=== PATIENT | female | born 1975 | race Caucasian/White ===

== ENCOUNTER 2017-03-22 17:29 | Emergency (ER) | payer SELFPAY ==
[2017-03-22 17:59] VITALS: BP 139/85; PULSE 76; TEMP 98.2; BMI 19.0
--- NOTE | 2017-03-22 18:21 | PDOC ---
History of Present Illness - General Chief Complaint: Bite Stated Complaint: BITE BY A CAT Time Seen by Provider: 03/22/17 18:01 History Source: Patient Exam Limitations: No Limitations - History of Present Illness Initial Comments: CHIEF COMPLAINT: 41 y/o afebrile female with no significant PMH here for rabies shots after being bitten and scratched by a rabid cat. HISTORY OF PRESENT ILLNESS: The patient states 6 days ago she was at a friend' s house who was feeding a stray cat. She states she was scratched and bitten superficially on both hands and arms by the cat. Today her friend called her and told her that the cat had tested positive for rabies. The patient is here for rabies shots. She is unsure of tetanus status. She has no complaints. Vital signs on arrival are within normal limits. REVIEW OF SYSTEMS: GENERAL/CONSTITUTIONAL: No fever/chills. No weakness. No weight change. HEAD, EYES, EARS, NOSE AND THROAT: No change in vision. No ear pain or discharge. No sore throat. CARDIOVASCULAR: No chest pain or shortness of breath. RESPIRATORY: No cough, wheezing, or hemoptysis. GASTROINTESTINAL: No abd pain, nausea, vomiting, diarrhea. GENITOURINARY: No dysuria, frequency, or change in urination. MUSCULOSKELETAL: No joint or muscle swelling or pain. No neck or back pain. SKIN: +scratches and bites to both hands and arms. NEUROLOGIC: No headache, vertigo, loss of consciousness, or loss of sensation. PHYSICAL EXAM: GENERAL: The patient is awake, alert, and fully oriented, in no acute distress. She is well appearing. HEAD: Normal with no signs of trauma. ENT: Pupils equal, round and reactive to light, extraocular movements intact, sclera anicteric, conjunctiva clear. Neck supple. LUNGS: Clear to auscultation bilaterally. Normal excursion. No respiratory distress or use of accessory muscles. CV: RRR, S1/S2, no MRG. Cap refill < 2 sec. ABDOMEN: Soft, non-distended, non-tender even to deep palpation, no hepatomegaly or splenomegaly, no masses. EXTREMITIES: Normal range of motion, no edema. +4 puncture wounds to anterior left tibia. NEUROLOGICAL: Normal speech, normal gait. CN II-XII grossly intact. PSYCH: Normal mood, normal affect. SKIN: Multiple superficial scrapes and very superficial punctures to b/l arms and hands. No streaking. No surrounding erythema. Past History - Past Medical History Allergies/Adverse Reactions: Allergies Allergy/AdvReac Type Severity Reaction Status Date / Time No Known Allergies Allergy Verified 03/22/17 17:57 Home Medications: Ambulatory Orders NK [No Known Home Medication] 03/22/17 - Surgical History Appendectomy: Yes - Immunization History Immunization Up to Date: No - Psycho/Social/Smoking Cessation Hx Suicidal Ideation: No Smoking History: Never smoked Number of Cigarettes Smoked Daily: 1 Information on smoking cessation initiated: No Hx Alcohol Use: No Drug/Substance Use Hx: No Substance Use Type: None *Physical Exam - Vital Signs Last Vital Signs Temp Pulse Resp BP Pulse Ox 98.2 F 76 18 139/85 100 03/22/17 17:57 03/22/17 17:57 03/22/17 17:57 03/22/17 17:57 03/22/17 17:57 Medical Decision Making - Medical Decision Making A/P: 41 y/o female here 6 days after she was bitten and scratched by a rabid cat for rabies shot and vaccine. Plan is as follows: 1. Tetanus 2. Rabies immunoglobulin 3. Rabies vaccine Patient tolerated all injections well. Gave her schedule for when to come back for other shots (03/25, 03/29, 04/05, 04/19) She states she will definitely come back for all shots. Pt instructed to return to the ER sooner with any concerning symptoms. The patient verbalizes understanding of all instructions, has no further questions and is awaiting discharge. *DC/Admit/Observation/Transfer Diagnosis at time of Disposition: Rabies exposure - Discharge Dispostion Disposition: HOME Condition at time of disposition: Good - Patient Instructions Printed Discharge Instructions: DI for Rabies Vaccine, Rabies Additional Instructions: Discharge Instructions: -You received a rabies vaccine, rabies immunoglobulin and tetanus injection today. -Your tetanus is now up to date for 10 years -You must return to the ER for further rabies shots on 03/25, 03/29, 04/05, 04/19
[2017-03-22] MEDS ORDERED: RABIES IMMUNE GLOBULIN 300 UNITS/2 ML VIAL IM ONE ×2 (18:26→18:46)
[2017-03-22] MEDS ORDERED: RABIES VACCINE (PCEC)/PF 2.5 UNIT/VIAL IM ONE (18:26)
[2017-03-22] MEDS ORDERED: DIPHTH,PERTUSS(ACELL),TET 0.5 ML DISP.SYRIN IM ONE (18:32)
[2017-03-22] MEDS ORDERED: RABIES IMMUNE GLOBULIN 300 UNITS/2 ML VIAL ONE (18:53)
== END 2017-03-22 20:02 | disposition home or self-care (01) ==
LOC: JERFT 17:29
PROC: 3E0234Z Introduction of Serum, Toxoid and Vaccine into Muscle, Percutaneous Approach (ICD-10-PCS; principal; 2017-03-22)
PROC: 3E0234Z Introduction of Serum, Toxoid and Vaccine into Muscle, Percutaneous Approach (ICD-10-PCS; 2017-03-22)
PROC: 3E0234Z Introduction of Serum, Toxoid and Vaccine into Muscle, Percutaneous Approach (ICD-10-PCS; 2017-03-22)
DX: Z20.3 Contact with and (suspected) exposure to rabies (principal); Z23 Encounter for immunization; S60.512A Abrasion of left hand, initial encounter; S60.511A Abrasion of right hand, initial encounter; W55.01XA Bitten by cat, initial encounter; W55.03XA Scratched by cat, initial encounter; Y93.89 Activity, other specified; Y92.89 Other specified places as the place of occurrence of the external cause
CPT/HCPCS: 90375; 90675; 90715; 99281-25

== ENCOUNTER 2017-03-25 07:55 | Emergency (ER) | payer SELFPAY ==
[2017-03-25 08:10] VITALS: BP 122/73; PULSE 80; TEMP 98.5; BMI 19.0
[2017-03-25] MEDS ORDERED: RABIES VACCINE (PCEC)/PF 2.5 UNIT/VIAL IM ONE (08:27)
--- NOTE | 2017-03-25 08:30 | PDOC ---
*Physical Exam - Vital Signs Last Vital Signs Temp Pulse Resp BP Pulse Ox 98.5 F 80 19 122/73 99 03/25/17 08:07 03/25/17 08:07 03/25/17 08:07 03/25/17 08:07 03/25/17 08:07 - Physical Exam General Appearance: Yes: Appropriately Dressed, Apparent Distress Medical Decision Making - Medical Decision Making 03/25/17 08:28 here for 2nd rabies vaccine *DC/Admit/Observation/Transfer Diagnosis at time of Disposition: Rabies exposure - Discharge Dispostion Disposition: HOME Condition at time of disposition: Stable Admit: No - Referrals - Patient Instructions Additional Instructions: return for rabies - Post Discharge Activity Work/School Note: Rabies Vaccination F/U Sumit.
== END 2017-03-25 08:40 | disposition home or self-care (01) ==
LOC: JERFT 07:55
PROC: 3E0234Z Introduction of Serum, Toxoid and Vaccine into Muscle, Percutaneous Approach (ICD-10-PCS; principal; 2017-03-25)
DX: Z23 Encounter for immunization (principal); Z20.3 Contact with and (suspected) exposure to rabies
CPT/HCPCS: 90675; 99281-25

== ENCOUNTER 2017-03-29 07:58 | Emergency (ER) | payer SELFPAY ==
[2017-03-29 08:09] VITALS: BP 116/64; PULSE 67; TEMP 97.8; BMI 19.0
[2017-03-29] MEDS ORDERED: RABIES VACCINE (PCEC)/PF 2.5 UNIT/VIAL IM ONE (08:18)
--- NOTE | 2017-03-29 08:26 | PDOC ---
History of Present Illness - General Chief Complaint: Revisit,Rabies Injection Stated Complaint: FOLLOW UP RABIES VACCINATION Time Seen by Provider: 03/29/17 08:18 History Source: Patient Exam Limitations: No Limitations - History of Present Illness Initial Comments: 03/29/17 08:21 CHIEF COMPLAINT: Here for third rabies vaccination HISTORY OF PRESENT ILLNESS: Patient reports that she was feeding a stray cat. She states she was scratched and bitten superficially on both hands and arms by the cat. Today her friend called her and told her that the cat had tested positive for rabies. The patient is here for third rabies vaccination. REVIEW OF SYSTEMS: GENERAL/CONSTITUTIONAL: No fever/chills. No weakness. No weight change. HEAD, EYES, EARS, NOSE AND THROAT: No change in vision. No ear pain or discharge. No sore throat. CARDIOVASCULAR: No chest pain or shortness of breath. RESPIRATORY: No cough, wheezing, or hemoptysis. GASTROINTESTINAL: No abd pain, nausea, vomiting, diarrhea. GENITOURINARY: No dysuria, frequency, or change in urination. MUSCULOSKELETAL: No joint or muscle swelling or pain. No neck or back pain. SKIN: Healed +scratches and bites to both hands and arms. NEUROLOGIC: No headache, vertigo, loss of consciousness, or loss of sensation. PHYSICAL EXAM: GENERAL: The patient is awake, alert, and fully oriented, in no acute distress. She is well appearing. HEAD: Normal with no signs of trauma. ENT: Pupils equal, round and reactive to light, extraocular movements intact, sclera anicteric, conjunctiva clear. Neck supple. LUNGS: Clear to auscultation bilaterally. Normal excursion. No respiratory distress or use of accessory muscles. CV: RRR, S1/S2, no MRG. Cap refill < 2 sec. ABDOMEN: Soft, non-distended, non-tender even to deep palpation, no hepatomegaly or splenomegaly, no masses. EXTREMITIES: Normal range of motion, no edema. +4 puncture wounds to anterior left tibia. NEUROLOGICAL: Normal speech, normal gait. CN II-XII grossly intact. PSYCH: Normal mood, normal affect. SKIN: Multiple superficial scrapes and very superficial punctures to b/l arms and hands. No streaking. No surrounding erythema. Past History - Past Medical History Allergies/Adverse Reactions: Allergies Allergy/AdvReac Type Severity Reaction Status Date / Time No Known Allergies Allergy Verified 03/29/17 08:06 Home Medications: Ambulatory Orders NK [No Known Home Medication] 03/22/17 Other medical history: none - Surgical History Appendectomy: Yes - Immunization History Immunization Up to Date: No - Psycho/Social/Smoking Cessation Hx Anxiety: No Suicidal Ideation: No Smoking History: Never smoked Have you smoked in the past 12 months: Yes Number of Cigarettes Smoked Daily: 1 Information on smoking cessation initiated: No Hx Alcohol Use: No Drug/Substance Use Hx: No Substance Use Type: None *Physical Exam - Vital Signs Last Vital Signs Temp Pulse Resp BP Pulse Ox 97.8 F 67 18 116/64 100 03/29/17 08:06 03/29/17 08:06 03/29/17 08:06 03/29/17 08:06 03/29/17 08:06 Medical Decision Making - Medical Decision Making 03/29/17 08:30 A/P : Patient here for third rabies vaccination. schedule given for follow up. *DC/Admit/Observation/Transfer Diagnosis at time of Disposition: Need for rabies vaccination - Discharge Dispostion Admit: No - Patient Instructions Printed Discharge Instructions: DI for Rabies Vaccine - Post Discharge Activity Work/School Note: Rabies Vaccination F/U [facility]it.
== END 2017-03-29 08:36 ==
LOC: JERFT 07:58 → JER 07:58 → JERFT 08:36
CPT/HCPCS: 90675; 99281-25

== ENCOUNTER 2017-04-05 07:43 | Emergency (ER) | payer SELFPAY ==
[2017-04-05 07:47] VITALS: BP 123/68; PULSE 79; TEMP 99; BMI 19.3
[2017-04-05] MEDS ORDERED: RABIES IMMUNE GLOBULIN 300 UNITS/2 ML VIAL IM ONE (08:10)
[2017-04-05] MEDS ORDERED: RABIES VACCINE (PCEC)/PF 2.5 UNIT/VIAL IM ONE (08:14)
--- NOTE | 2017-04-05 08:17 | PDOC ---
History of Present Illness - General Chief Complaint: Revisit,Rabies Injection Stated Complaint: REVISIT Time Seen by Provider: 04/05/17 07:51 History Source: Patient Exam Limitations: No Limitations - History of Present Illness Initial Comments: 04/05/17 08:11 Patient is a 41F here today to get rabies vaccination after being bit and scratched by cat that had reportedly tested positive for rabies. She has no complaints at this time. She denies nausea, vomiting, fevers, chills, parathesias and reactions at the vaccination site. Past History - Past Medical History Allergies/Adverse Reactions: Allergies Allergy/AdvReac Type Severity Reaction Status Date / Time No Known Allergies Allergy Verified 04/05/17 07:45 Home Medications: Ambulatory Orders NK [No Known Home Medication] 03/22/17 - Surgical History Appendectomy: Yes - Immunization History Immunization Up to Date: No - Psycho/Social/Smoking Cessation Hx Anxiety: No Suicidal Ideation: No Smoking History: Current some day smoker Have you smoked in the past 12 months: No Number of Cigarettes Smoked Daily: 1 Information on smoking cessation initiated: No Hx Alcohol Use: No Drug/Substance Use Hx: No Substance Use Type: None Review of Systems - Review of Systems Comments:: 04/05/17 08:14 GENERAL/CONSTITUTIONAL: No fever or chills. No weakness. HEAD, EYES, EARS, NOSE AND THROAT: No change in vision. No ear pain or discharge. No sore throat. CARDIOVASCULAR: No chest pain or shortness of breath RESPIRATORY: No cough, wheezing, or hemoptysis. GASTROINTESTINAL: No nausea, vomiting GENITOURINARY: No dysuria, frequency, or change in urination. MUSCULOSKELETAL: No joint or muscle swelling or pain. No neck or back pain. SKIN: No rash NEUROLOGIC: No headache, vertigo, loss of consciousness, or change in strength/ sensation. ALLERGIC/IMMUNOLOGIC: No hives or skin allergy. *Physical Exam - Vital Signs Last Vital Signs Temp Pulse Resp BP Pulse Ox 99 F 79 18 123/68 100 04/05/17 07:45 04/05/17 07:45 04/05/17 07:45 04/05/17 07:45 04/05/17 07:45 - Physical Exam Comments: 04/05/17 08:15 GENERAL: Awake, alert, and fully oriented, in no acute distress HEAD: No signs of trauma, normocephalic, atraumatic EYES: PERRLA, EOMI, sclera anicteric, conjunctiva clear ENT: Auricles normal inspection, hearing grossly normal, nares patent, oropharynx clear without exudates. Moist mucosa LUNGS: No distress, speaks full sentences, clear to auscultation bilaterally HEART: Regular rate and rhythm, normal S1 and S2, no murmurs, rubs or gallops, peripheral pulses normal and equal bilaterally. EXTREMITIES: Normal inspection, Normal range of motion, no edema. No clubbing or cyanosis. NEUROLOGICAL: Normal speech, normal gait, no focal sensorimotor deficits SKIN: Warm, Dry, normal turgor, small, healing scratch wound on left leg. Medical Decision Making - Medical Decision Making 04/05/17 08:17 41F with no complaints here today for rabies vaccination. Tolerated prior vaccinations well. Rabies vaccination given per protocol given today without incident. Next vaccination on 04/19. *DC/Admit/Observation/Transfer Diagnosis at time of Disposition: Rabies exposure - Discharge Dispostion Disposition: HOME Condition at time of disposition: Good Admit: No - Patient Instructions Printed Discharge Instructions: DI for Rabies Vaccine - Attestations Physician Attestion: 04/05/17 08:19 I, Dr. Yannick Wing, attest that this document has been prepared under my direction and personally reviewed by me in its entirety. I further attest, that it accurately reflects all work, treatment, procedures and medical decision -making performed by me.
--- NOTE | 2017-04-05 08:25 | PDOC ---
Attending Attestation - Resident Resident Name: Yannick Wing - ED Attending Attestation I have performed the following: I have examined & evaluated the patient, The case was reviewed & discussed with the resident, I agree w/resident's findings & plan, Exceptions are as noted - HPI HPI: 04/05/17 08:24 41 yo F with no pmhx here for 4th rabies vaccination. for postiive tested exposure cat bite. was given immunoglobin initially. no f/ c no narvaez no n/v - Physicial Exam PE: 04/05/17 08:24 awake alert lungs clear heart RRR no mrg. abd soft nt nd skin warm and dry. - Medical Decision Making 04/05/17 08:25 plan vaccination. dc
== END 2017-04-05 08:29 | disposition home or self-care (01) ==
LOC: JER 07:43
PROC: 3E0234Z Introduction of Serum, Toxoid and Vaccine into Muscle, Percutaneous Approach (ICD-10-PCS; principal; 2017-04-05)
DX: Z20.3 Contact with and (suspected) exposure to rabies (principal)
CPT/HCPCS: 90675; 99281-25

== ENCOUNTER 2017-04-19 17:09 | Emergency (ER) | payer SELFPAY ==
[2017-04-19 17:15] VITALS: BP 120/96; PULSE 85; TEMP 98.5; BMI 20.1
[2017-04-19] MEDS ORDERED: RABIES VACCINE (PCEC)/PF 2.5 UNIT/VIAL IM ONE (18:08)
--- NOTE | 2017-04-19 18:16 | PDOC ---
History of Present Illness - General Chief Complaint: Revisit,Rabies Injection Stated Complaint: REVISIT/RABIES VACCINATION Time Seen by Provider: 04/19/17 18:08 History Source: Patient Exam Limitations: No Limitations - History of Present Illness Initial Comments: 04/19/17 18:09 rabies vaccine - here for the last rabies vaccination. Has completed series after a stray cat bite exposure to her hand and leg. Patient states has had no consequences from the previous vaccines and understands this is the last vaccine necessary. 04/19/17 18:31 Severity: moderate Associated Symptoms: reports: denies symptoms Past History - Travel Traveled outside of the country in the last 30 days: No Close contact w/someone who was outside of country & ill: No - Past Medical History Allergies/Adverse Reactions: Allergies Allergy/AdvReac Type Severity Reaction Status Date / Time No Known Allergies Allergy Verified 04/19/17 17:14 Home Medications: Ambulatory Orders NK [No Known Home Medication] 03/22/17 Other medical history: denies - Surgical History Abdominal Surgery: No Appendectomy: Yes - Immunization History Immunization Up to Date: No - Psycho/Social/Smoking Cessation Hx Anxiety: No Suicidal Ideation: No Smoking History: Never smoked Have you smoked in the past 12 months: No Number of Cigarettes Smoked Daily: 1 Information on smoking cessation initiated: No Hx Alcohol Use: No Drug/Substance Use Hx: No Substance Use Type: None Review of Systems - Review of Systems Able to Perform ROS?: Yes Is the patient limited Nepalese proficient: Yes Constitutional: Yes: See HPI. No: Symptoms Reported *Physical Exam - Vital Signs Last Vital Signs Temp Pulse Resp BP Pulse Ox 98.5 F 85 18 120/96 99 04/19/17 17:13 04/19/17 17:13 04/19/17 17:13 04/19/17 17:13 04/19/17 17:13 - Physical Exam General Appearance: Yes: Nourished, Appropriately Dressed. No: Apparent Distress HEENT: positive: KRISTY, Normal ENT Inspection, TMs Normal, Pharynx Normal Musculoskeletal: positive: Normal Inspection Extremity: positive: Normal Capillary Refill Integumentary: positive: Normal Color Neurologic: positive: airplane mechanic II-XII NML intact, Fully Oriented, Alert, Normal Mood/ Affect, Normal Response, Motor Strength 5/5 Medical Decision Making - Medical Decision Making 04/19/17 22:42 Fourth and final rabies vaccine given today *DC/Admit/Observation/Transfer Diagnosis at time of Disposition: Need for rabies vaccination - Discharge Dispostion Disposition: HOME Condition at time of disposition: Stable Admit: No - Patient Instructions Printed Discharge Instructions: DI for Rabies Vaccine Additional Instructions: History of Present Illness - General Chief Complaint: Revisit,Rabies Injection Stated Complaint: REVISIT/RABIES VACCINATION Time Seen by Provider: 04/19/17 18:08 History Source: Patient Exam Limitations: No Limitations - History of Present Illness Initial Comments: 04/19/17 18:09 rabies vaccine - here for the last rabies vaccination. Has completed series after a stray cat bite exposure to her hand and leg. Patient states has had no consequences from the previous vaccines and understands this is the last vaccine necessary. 04/19/17 18:31 Severity: moderate Associated Symptoms: reports: denies symptoms Past History - Travel Traveled outside of the country in the last 30 days: No Close contact w/someone who was outside of country & ill: No - Past Medical History Allergies/Adverse Reactions: Allergies Allergy/AdvReac Type Severity Reaction Status Date / Time No Known Allergies Allergy Verified 04/19/17 17:14 Home Medications: Ambulatory Orders NK [No Known Home Medication] 03/22/17 Other medical history: denies - Surgical History Abdominal Surgery: No Appendectomy: Yes - Immunization History Immunization Up to Date: No - Psycho/Social/Smoking Cessation Hx Anxiety: No Suicidal Ideation: No Smoking History: Never smoked Have you smoked in the past 12 months: No Number of Cigarettes Smoked Daily: 1 Information on smoking cessation initiated: No Hx Alcohol Use: No Drug/Substance Use Hx: No Substance Use Type: None Review of Systems - Review of Systems Able to Perform ROS?: Yes Is the patient limited Nepalese proficient: Yes Constitutional: Yes: See HPI. No: Symptoms Reported *Physical Exam - Vital Signs Last Vital Signs Temp Pulse Resp BP Pulse Ox 98.5 F 85 18 120/96 99 04/19/17 17:13 04/19/17 17:13 04/19/17 17:13 04/19/17 17:13 04/19/17 17:13 *DC/Admit/Observation/Transfer Diagnosis at time of Disposition: Need for rabies vaccination - Discharge Dispostion Disposition: HOME Condition at time of disposition: Stable Admit: No - Patient Instructions Printed Discharge Instructions: DI for Rabies Vaccine History of Present Illness - General Chief Complaint: Revisit,Rabies Injection Stated Complaint: REVISIT/RABIES VACCINATION Time Seen by Provider: 04/19/17 18:08 History Source: Patient Exam Limitations: No Limitations - History of Present Illness Initial Comments: 04/19/17 18:09 rabies vaccine - here for the last rabies vaccination. Has completed series after a stray cat bite exposure to her hand and leg. Patient states has had no consequences from the previous vaccines and understands this is the last vaccine necessary. 04/19/17 18:31 Severity: moderate Associated Symptoms: reports: denies symptoms Past History - Travel Traveled outside of the country in the last 30 days: No Close contact w/someone who was outside of country & ill: No - Past Medical History Allergies/Adverse Reactions: Allergies Allergy/AdvReac Type Severity Reaction Status Date / Time No Known Allergies Allergy Verified 04/19/17 17:14 Home Medications: Ambulatory Orders NK [No Known Home Medication] 03/22/17 Other medical history: denies - Surgical History Abdominal Surgery: No Appendectomy: Yes - Immunization History Immunization Up to Date: No - Psycho/Social/Smoking Cessation Hx Anxiety: No Suicidal Ideation: No Smoking History: Never smoked Have you smoked in the past 12 months: No Number of Cigarettes Smoked Daily: 1 Information on smoking cessation initiated: No Hx Alcohol Use: No Drug/Substance Use Hx: No Substance Use Type: None Review of Systems - Review of Systems Able to Perform ROS?: Yes Is the patient limited Nepalese proficient: Yes Constitutional: Yes: See HPI. No: Symptoms Reported *Physical Exam - Vital Signs Last Vital Signs Temp Pulse Resp BP Pulse Ox 98.5 F 85 18 120/96 99 04/19/17 17:13 04/19/17 17:13 04/19/17 17:13 04/19/17 17:13 04/19/17 17:13 *DC/Admit/Observation/Transfer Diagnosis at time of Disposition: Need for rabies vaccination - Discharge Dispostion Disposition: HOME Condition at time of disposition: Stable Admit: No - Patient Instructions Printed Discharge Instructions: DI for Rabies Vaccine
== END 2017-04-19 18:38 | disposition home or self-care (01) ==
LOC: JERFT 17:09
PROC: 3E0234Z Introduction of Serum, Toxoid and Vaccine into Muscle, Percutaneous Approach (ICD-10-PCS; principal; 2017-04-19)
DX: Z02.3 Encounter for examination for recruitment to armed forces (principal)
CPT/HCPCS: 90675; 99281-25

== ENCOUNTER 2018-12-22 16:12 | Emergency (ER) | payer OTHER ==
[2018-12-22 16:17] VITALS: BP 107/40; PULSE 92; TEMP 97.9; BMI 20.1
[2018-12-22] MEDS ORDERED: SODIUM CHLORIDE 1,000 ML IV STA (16:17)
--- NOTE | 2018-12-22 16:17 | PDOC ---
Rapid Medical Evaluation Medical Evaluation: Allergies Allergy/AdvReac Type Severity Reaction Status Date / Time No Known Allergies Allergy Verified 04/19/17 17:14 I have performed a brief in-person evaluation of this patient. The patient presents with a chief complaint of: Ran out of Paxil 4 days ago; c/ o having n/v; had few episodes of watery diarrhea yesterday as well; denies drug or alcohol use Pertinent physical exam findings: In NAD, +tearing I have ordered the following: labs, IVF The patient will proceed to the ED for further evaluation. 12/22/18 16:13
[2018-12-22] MEDS ORDERED: ONDANSETRON 4 MG/2 ML VIAL IVPUSH ONE (16:57)
[2018-12-22] MEDS ORDERED: ONDANSETRON 4 MG/2 ML VIAL ONE (17:31)
[2018-12-22] MEDS ORDERED: ACETAMINOPHEN 1000 MG/100 ML VIAL (NON FORMULARY) IVPB ONE (17:41)
--- NOTE | 2018-12-22 17:54 | PDOC ---
History of Present Illness - General Chief Complaint: Pain Stated Complaint: Nausea/Vomiting, ran out Paxil Time Seen by Provider: 12/22/18 16:13 History Source: Patient Exam Limitations: No Limitations - History of Present Illness Travel History: No Initial Comments: 12/22/18 17:20 43-year-old female presents to ED with complaints of nausea vomiting and generalized abdominal cramping since awakening this morning. Patient states ran out of her Paxil about 5 days ago and was unable to receive a refill. Patient denies fever, chills, urinary complaints, bowel complaints, chest pain or shortness of breath. Timing/Duration: reports: constant Quality: reports: mild, cramping Abdominal Pain Onset Location: reports: generalized abdomen Pain Radiation: denies: no radiation Activities at Onset: reports: none Aggravating Factors: improves with: None Alleviating Factors: improves with: None Past History - Travel Traveled outside of the country in the last 30 days: No Close contact w/someone who was outside of country & ill: No - Past Medical History Allergies/Adverse Reactions: Allergies Allergy/AdvReac Type Severity Reaction Status Date / Time No Known Allergies Allergy Verified 12/22/18 16:17 Home Medications: Ambulatory Orders NK [No Known Home Medication] 03/22/17 COPD: No Psychiatric Problems: Yes (depression) - Surgical History Abdominal Surgery: No Appendectomy: Yes - Immunization History Immunization Up to Date: No - Suicide/Smoking/Psychosocial Hx Smoking History: Current every day smoker Have you smoked in the past 12 months: No Number of Cigarettes Smoked Daily: 5 Information on smoking cessation initiated: No Hx Alcohol Use: No Drug/Substance Use Hx: No Substance Use Type: None Patient Lives Alone: No Lives with/in: spouse/SO Review of Systems - Review of Systems Able to Perform ROS?: Yes Constitutional: Yes: Weakness HEENTM: No: Symptoms Reported Respiratory: No: Symptoms reported Cardiac (ROS): No: Symptoms Reported ABD/GI: Yes: Nausea, Poor Appetite, Poor Fluid Intake, Vomiting, Abdominal cramping Integumentary: No: Symptoms Reported Neurological: No: Symptoms reported Psychiatric: Yes: Anxiety, Depression, Stressors Endocrine: No: Symptoms Reported Hematologic/Lymphatic: No: Symptoms Reported *Physical Exam - Vital Signs Last Vital Signs Temp Pulse Resp BP Pulse Ox 97.9 F 92 H 19 107/40 L 98 12/22/18 16:14 12/22/18 16:14 12/22/18 16:14 12/22/18 16:14 12/22/18 16:14 - Physical Exam General Appearance: Yes: Nourished, Appropriately Dressed. No: Apparent Distress HEENT: positive: Pharynx Normal (dry appearing). negative: Pale Conjunctivae Neck: positive: Normal Thyroid Respiratory/Chest: positive: Lungs Clear, Normal Breath Sounds. negative: Respiratory Distress, Accessory Muscle Use Cardiovascular: positive: Regular Rhythm, Regular Rate. negative: Murmur Gastrointestinal/Abdominal: positive: Normal Bowel Sounds, Soft. negative: Distended, Tenderness Integumentary: positive: Normal Color, Warm, Moist Neurologic: positive: Motor Strength 5/5. negative: Normal Mood/Affect (anxious ) Heart Score/ECG Review - ECG Intrepretation Rhythm: Regular Rhythm (nsr 72) ED Treatment Course - LABORATORY CBC & Chemistry Diagram: 12/22/18 17:36 12/22/18 17:36 - Medications Given in the ED: ED Medications Discontinued Medications Generic Name Dose Route Start Last Admin Trade Name Freq PRN Reason Stop Dose Admin Sodium Chloride 1,000 mls @ 1,000 mls/hr 12/22/18 16:17 12/22/18 17:32 Normal Saline - IV 12/22/18 17:16 1,000 mls/hr ASDIR STA Administration Ondansetron HCl 4 mg 12/22/18 16:57 12/22/18 17:32 Zofran Injection IVPUSH 12/22/18 16:58 4 mg ONCE ONE Administration Medical Decision Making - Medical Decision Making 12/22/18 17:05 Chief complaint. Patient feeling anxious nauseous and is vomiting since this morning. Patient also complains of generalized abdominal cramping and requesting refill for Paxil and she has not taken in 5 days Exam. Patient appears dry anxious and had no abdominal tenderness on exam. Plan: Patient ordered for IV fluids, Tylenol, Zofran, labs and urine 12/22/18 18:06 Laboratory Tests 12/22/18 17:36 WBC 7.2 Hgb 14.5 Hct 42.6 MCV 93.4 Absolute Neuts (auto) 6.3 Neutrophils % 87.4 H 12/22/18 18:17 Laboratory Tests 12/22/18 17:36 Sodium 138 Potassium 3.9 Chloride 108 H Carbon Dioxide 25 Anion Gap 6 L BUN 15 Creatinine 0.6 Random Glucose 96 Calcium 9.0 Total Bilirubin 0.8 AST 21 ALT 26 Alkaline Phosphatase 69 Total Protein 6.7 Albumin 3.6 Lipase 141 12/22/18 18:28 ua collected. pt feeling better. will dc home w/ rx of paxil *DC/Admit/Observation/Transfer Diagnosis at time of Disposition: Paxil withdrawal syndrome - Discharge Dispostion Disposition: HOME Condition at time of disposition: Improved - Referrals - Patient Instructions Printed Discharge Instructions: Nausea and Vomiting-Adult Additional Instructions: Please start your Paxil tonight and take Zofran as needed for nausea. Please also follow-up with your doctor next week to discuss today's visit and receive refill. - Post Discharge Activity
[2018-12-22 17:55] LABS: BASO % 0.3 % (0-2.0); EOS % 0.7 % (0-4.5); HEMATOCRIT 42.6 % (32.4-45.2); HEMOGLOBIN 14.5 GM/dL (10.7-15.3); LYMPH % 6.7 % (8-40); MCH 31.7 pg (25.7-33.7); MCHC 33.9 g/dl (32.0-36.0); MEAN CELL VOLUME 93.4 fl (80-96); MEAN PLT VOLUME 8.9 fl (7.5-11.1); MONO % 4.9 % (3.8-10.2); NEUT % 87.4 % (42.8-82.8); PLATELET COUNT 152 K/MM3 (134-434); RBC 4.56 M/mm3 (3.60-5.2); RDW 13.1 % (11.6-15.6); WHITE BLOOD COUNT 7.2 K/mm3 (4.0-10.0)
[2018-12-22] MEDS ORDERED: ACETAMINOPHEN INJECTION 100 ML IVPB ONE (18:00)
[2018-12-22 18:16] LABS: ALBUMIN 3.6 g/dl (3.4-5.0); BILIRUBIN,TOTAL 0.8 mg/dL (0.2-1); CREATININE 0.6 mg/dL (0.55-1.3); POTASSIUM 3.9 mmol/L (3.5-5.1); TOT PROT 6.7 g/dl (6.4-8.2)
[2018-12-22 19:18] LABS: URINE APPEARANCE CLOUDY; URINE BILIRUBIN NEGATIVE (NEGATIVE); URINE COLOR YELLOW; URINE GLUCOSE (UA) NEGATIVE (NEGATIVE); URINE KETONE 1+ (NEGATIVE); URINE LEUK ESTERASE NEGATIVE (NEGATIVE); URINE NITRITE NEGATIVE (NEGATIVE); URINE PROTEIN NEGATIVE (NEGATIVE); URINE UROBILINOGEN 0.2 mg/dL (0.2-1.0)
[2018-12-22 19:21] LABS: HCG,QUALITATIVE URINE Negative
--- NOTE | 2018-12-23 11:44 | EKG ---
Test Reason : Blood Pressure : / mmHG Vent. Rate : 072 BPM Atrial Rate : 072 BPM P-R Int : 164 ms QRS Dur : 088 ms QT Int : 374 ms P-R-T Axes : 067 068 069 degrees QTc Int : 409 ms NORMAL SINUS RHYTHM SEPTAL INFARCT , AGE UNDETERMINED ABNORMAL ECG NO PREVIOUS ECGS AVAILABLE Confirmed by XOCHITL HARMAN, LEX ([id number]) on 12/23/2018 11:43:55 AM Referred By: Confirmed By:LEX LEUNG MD
== END 2018-12-22 19:05 | disposition home or self-care (01) ==
LOC: JER 16:12
PROC: 3E0337Z Introduction of Electrolytic and Water Balance Substance into Peripheral Vein, Percutaneous Approach (ICD-10-PCS; principal; 2018-12-22)
PROC: 3E033NZ Introduction of Analgesics, Hypnotics, Sedatives into Peripheral Vein, Percutaneous Approach (ICD-10-PCS; 2018-12-22)
PROC: 3E033GC Introduction of Other Therapeutic Substance into Peripheral Vein, Percutaneous Approach (ICD-10-PCS; 2018-12-22)
DX: F13.230 Sedative, hypnotic or anxiolytic dependence with withdrawal, uncomplicated (principal); F41.9 Anxiety disorder, unspecified
CPT/HCPCS: 36415; 80053; 81003; 83690; 84703; 85025; 93005; 93010; 96361; 96374; 96375; 99282-25; J0131; J7030

== ENCOUNTER 2020-12-13 20:41 | Inpatient (IN) | payer OTHER ==
[2020-12-13 21:46] LABS: BASO % 1.1 % (0-2.0); EOS % 6.3 % (0-4.5); HEMATOCRIT 38.6 % (32.4-45.2); HEMOGLOBIN 13.2 GM/dL (10.7-15.3); LYMPH % 32.5 % (8-40); MCH 32.2 pg (25.7-33.7); MCHC 34.3 g/dl (32.0-36.0); MEAN CELL VOLUME 94.1 fl (80-96); MEAN PLT VOLUME 8.8 fl (7.5-11.1); MONO % 10.5 % (3.8-10.2); NEUT % 49.6 % (42.8-82.8); PLATELET COUNT 219 K/MM3 (134-434); RDW 12.8 % (11.6-15.6); WHITE BLOOD COUNT 4.3 K/mm3 (4.0-10.0)
[2020-12-13] MEDS ORDERED: VANCOMYCIN 1 GM in D5W (PRE-DOCKED) 1,000 MG/250 ML IVPB ONE (21:51)
[2020-12-13] MEDS ORDERED: CLINDAMYCIN 600MG PREMIX IVPB 600 MG/50 ML BAG IVPB ONE ×2 (21:52→21:56)
[2020-12-13] MEDS ORDERED: ACETAMINOPHEN 500 MG TABLET (FP) PO ONE (21:52)
[2020-12-13] MEDS ORDERED: VANCOMYCIN 1 GRAM (PRE-DOCKED) 1,000 MG/250 ML BAG IVPB ONE (21:56)
[2020-12-13] MEDS ORDERED: ACETAMINOPHEN 500 MG TABLET (FP) ONE (21:58)
[2020-12-13 22:05] LABS: CALCIUM 8.6 mg/dL (8.5-10.1)
[2020-12-13 22:06] LABS: ALBUMIN 3.3 g/dl (3.4-5.0)
[2020-12-13 22:09] LABS: CREATININE 0.7 mg/dL (0.55-1.3)
[2020-12-13 22:10] LABS: BILIRUBIN,TOTAL 0.4 mg/dL (0.2-1); TOT PROT 7.1 g/dl (6.4-8.2)
[2020-12-14] MEDS ORDERED: ONDANSETRON 4 MG/2 ML VIAL IVPUSH PRN (00:40)
[2020-12-14] MEDS ORDERED: FAMOTIDINE 20 MG TABLET PO ONE (00:41)
[2020-12-14] MEDS ORDERED: CALAMINE 8% TOPICAL LOTION 177 ML BOTTLE TP PRN (01:10)
[2020-12-14] MEDS ORDERED: CEFAZOLIN 1 GM in DEXTROSE 5%-WATER - 50 ML IVPB SCH (02:00)
[2020-12-14 05:14] LABS: BASO % 0.8 % (0-2.0); EOS % 5.4 % (0-4.5); HEMATOCRIT 33.5 % (32.4-45.2); HEMOGLOBIN 11.9 GM/dL (10.7-15.3); LYMPH % 24.4 % (8-40); MCH 32.7 pg (25.7-33.7); MCHC 35.4 g/dl (32.0-36.0); MEAN CELL VOLUME 92.4 fl (80-96); MEAN PLT VOLUME 7.7 fl (7.5-11.1); MONO % 11.8 % (3.8-10.2); NEUT % 57.6 % (42.8-82.8); PLATELET COUNT 177 K/MM3 (134-434); RBC 3.63 M/mm3 (3.60-5.2); RDW 12.7 % (11.6-15.6); WHITE BLOOD COUNT 5.2 K/mm3 (4.0-10.0)
[2020-12-14] MEDS: ACETAMINOPHEN 325 MG TABLET (FP) PO PRN ×3 (05:28→20:12)
[2020-12-14] MEDS ORDERED: ACETAMINOPHEN 325 MG TABLET (FP) ONE (05:29)
[2020-12-14 05:33] LABS: CALCIUM 7.8 mg/dL (8.5-10.1)
[2020-12-14 05:34] LABS: BLOOD UREA NITROGEN 21.8 mg/dL (7-18)
[2020-12-14 05:37] LABS: CREATININE 0.6 mg/dL (0.55-1.3)
[2020-12-14] MEDS ORDERED: VANCOMYCIN 1 GM PREMIX - 1 GM/200 ML BAG IVPB SCH (10:00)
[2020-12-14] MEDS ORDERED: CEFAZOLIN 1 GM/D5W 1 GM/50 ML BAG IVPB SCH (10:00)
[2020-12-14] MEDS ORDERED: VANCOMYCIN 1 GRAM (PRE-DOCKED) 1 GM/250 ML BAG IVPB SCH (10:00)
[2020-12-14] MEDS ORDERED: DEXTROSE 5%-WATER - 50 ML IVPB ONE ×2 (10:27→16:22)
[2020-12-14] MEDS ORDERED: ceFAZolin SODIUM 1 GM VIAL ONE ×2 (10:27→16:22)
[2020-12-14] MEDS: FAMOTIDINE 20 MG TABLET PO SCH (10:31)
[2020-12-14] MEDS: PARoxetine HCL 20 MG TABLET PO SCH (10:31)
[2020-12-14] MEDS: ENOXAPARIN NA (PORCINE) 40 MG/0.4 ML DISP.SYRIN SQ SCH (10:31)
[2020-12-14] MEDS: DOXYCYCLINE INJECTION 100 MG in DEXTROSE 5%-WATER - 100 ML IVPB SCH ×2 (10:32→22:54)
[2020-12-14] MEDS: traMADol HCL 50 MG TABLET PO PRN (16:41)
[2020-12-14] MEDS: NICOTINE 14 MG/24 HOURS TOPICAL PATCH TD SCH (16:44)
[2020-12-14] MEDS: CEFAZOLIN 1 GM in DEXTROSE 5%-WATER - 1 GM/50 ML IVPB IVPB SCH (17:52)
[2020-12-14] MEDS ORDERED: PT OWN MED DRAWER 7, Y5N ONE (21:35)
[2020-12-15] MEDS ORDERED: ceFAZolin SODIUM 1 GM VIAL ONE ×3 (01:12→17:29)
[2020-12-15] MEDS ORDERED: DEXTROSE 5%-WATER - 50 ML IVPB ONE ×3 (01:13→17:29)
[2020-12-15] MEDS: CEFAZOLIN 1 GM in DEXTROSE 5%-WATER - 1 GM/50 ML IVPB IVPB SCH ×3 (01:21→17:42)
[2020-12-15] MEDS: traMADol HCL 50 MG TABLET PO PRN (05:16)
[2020-12-15 06:39] LABS: BASO % 1.2 % (0-2.0); EOS % 6.8 % (0-4.5); HEMATOCRIT 36.1 % (32.4-45.2); HEMOGLOBIN 12.3 GM/dL (10.7-15.3); LYMPH % 39.5 % (8-40); MCHC 34.1 g/dl (32.0-36.0); MEAN CELL VOLUME 93.8 fl (80-96); MEAN PLT VOLUME 8.7 fl (7.5-11.1); MONO % 11.2 % (3.8-10.2); NEUT % 41.3 % (42.8-82.8); PLATELET COUNT 188 K/MM3 (134-434); RBC 3.85 M/mm3 (3.60-5.2); RDW 12.7 % (11.6-15.6); WHITE BLOOD COUNT 3.8 K/mm3 (4.0-10.0)
[2020-12-15 07:05] LABS: BLOOD UREA NITROGEN 17.4 mg/dL (7-18); CALCIUM 8.6 mg/dL (8.5-10.1)
[2020-12-15 07:09] LABS: CREATININE 0.6 mg/dL (0.55-1.3)
[2020-12-15 07:10] LABS: BILIRUBIN,TOTAL 0.3 mg/dL (0.2-1); TOT PROT 6.2 g/dl (6.4-8.2)
[2020-12-15] MEDS: DOXYCYCLINE INJECTION 100 MG in DEXTROSE 5%-WATER - 100 ML IVPB SCH ×2 (09:03→23:05)
[2020-12-15] MEDS: ENOXAPARIN NA (PORCINE) 40 MG/0.4 ML DISP.SYRIN SQ SCH (09:06)
[2020-12-15] MEDS: FAMOTIDINE 20 MG TABLET PO SCH (09:06)
[2020-12-15] MEDS: PARoxetine HCL 20 MG TABLET PO SCH (09:06)
[2020-12-15] MEDS: NICOTINE 14 MG/24 HOURS TOPICAL PATCH TD SCH (09:06)
[2020-12-15] MEDS: ACETAMINOPHEN 325 MG TABLET (FP) PO PRN ×2 (13:24→23:30)
[2020-12-15] MEDS ORDERED: PT OWN MED DRAWER 7, Y5N ONE (21:17)
[2020-12-16] MEDS ORDERED: DEXTROSE 5%-WATER - 50 ML IVPB ONE ×3 (02:22→16:13)
[2020-12-16] MEDS ORDERED: ceFAZolin SODIUM 1 GM VIAL ONE ×3 (02:22→16:13)
[2020-12-16] MEDS: CEFAZOLIN 1 GM in DEXTROSE 5%-WATER - 1 GM/50 ML IVPB IVPB SCH ×3 (02:38→17:45)
[2020-12-16 07:59] LABS: HEMATOCRIT 35.4 % (32.4-45.2); HEMOGLOBIN 12.5 GM/dL (10.7-15.3); MCH 32.3 pg (25.7-33.7); MCHC 35.2 g/dl (32.0-36.0); MEAN CELL VOLUME 91.7 fl (80-96); MEAN PLT VOLUME 8.3 fl (7.5-11.1); PLATELET COUNT 213 K/MM3 (134-434); RBC 3.86 M/mm3 (3.60-5.2); RDW 12.5 % (11.6-15.6); WHITE BLOOD COUNT 4.9 K/mm3 (4.0-10.0)
[2020-12-16 08:32] LABS: CALCIUM 8.3 mg/dL (8.5-10.1)
[2020-12-16 08:33] LABS: ALBUMIN 2.9 g/dl (3.4-5.0)
[2020-12-16 08:36] LABS: CREATININE 0.6 mg/dL (0.55-1.3)
[2020-12-16 08:37] LABS: BILIRUBIN,TOTAL 0.4 mg/dL (0.2-1)
[2020-12-16] MEDS: DOXYCYCLINE INJECTION 100 MG in DEXTROSE 5%-WATER - 100 ML IVPB SCH ×2 (10:06→22:10)
[2020-12-16] MEDS: ENOXAPARIN NA (PORCINE) 40 MG/0.4 ML DISP.SYRIN SQ SCH (10:08)
[2020-12-16] MEDS: PARoxetine HCL 20 MG TABLET PO SCH (10:09)
[2020-12-16] MEDS: FAMOTIDINE 20 MG TABLET PO SCH (10:09)
[2020-12-16] MEDS: NICOTINE 14 MG/24 HOURS TOPICAL PATCH TD SCH (10:09)
[2020-12-16] MEDS: ACETAMINOPHEN 325 MG TABLET (FP) PO PRN ×2 (10:09→22:09)
[2020-12-16] MEDS ORDERED: PT OWN MED DRAWER 7, Y5N ONE (22:06)
[2020-12-17 00:01] VITALS: BMI 17.5
[2020-12-17] MEDS ORDERED: ceFAZolin SODIUM 1 GM VIAL ONE ×3 (01:42→16:30)
[2020-12-17] MEDS ORDERED: DEXTROSE 5%-WATER - 50 ML IVPB ONE ×3 (01:42→16:31)
[2020-12-17] MEDS: CEFAZOLIN 1 GM in DEXTROSE 5%-WATER - 1 GM/50 ML IVPB IVPB SCH ×3 (02:09→17:16)
[2020-12-17 07:58] LABS: HEMATOCRIT 38.5 % (32.4-45.2); HEMOGLOBIN 13.3 GM/dL (10.7-15.3); MCH 32.2 pg (25.7-33.7); MCHC 34.5 g/dl (32.0-36.0); MEAN CELL VOLUME 93.2 fl (80-96); MEAN PLT VOLUME 8.6 fl (7.5-11.1); PLATELET COUNT 235 K/MM3 (134-434); RBC 4.12 M/mm3 (3.60-5.2); RDW 12.7 % (11.6-15.6); WHITE BLOOD COUNT 5.1 K/mm3 (4.0-10.0)
[2020-12-17] MEDS ORDERED: PT OWN MED DRAWER 7, Y5N ONE ×2 (08:29→20:51)
[2020-12-17 08:44] LABS: ALBUMIN 3.4 g/dl (3.4-5.0)
[2020-12-17 08:45] LABS: BILIRUBIN,TOTAL 0.4 mg/dL (0.2-1); CALCIUM 8.7 mg/dL (8.5-10.1); TOT PROT 6.6 g/dl (6.4-8.2)
[2020-12-17 08:46] LABS: CREATININE 0.7 mg/dL (0.55-1.3)
[2020-12-17] MEDS: ENOXAPARIN NA (PORCINE) 40 MG/0.4 ML DISP.SYRIN SQ SCH (09:39)
[2020-12-17] MEDS: NICOTINE 14 MG/24 HOURS TOPICAL PATCH TD SCH (09:40)
[2020-12-17] MEDS: FAMOTIDINE 20 MG TABLET PO SCH (09:40)
[2020-12-17] MEDS: PARoxetine HCL 20 MG TABLET PO SCH (09:40)
[2020-12-17] MEDS: DOXYCYCLINE INJECTION 100 MG in DEXTROSE 5%-WATER - 100 ML IVPB SCH ×2 (10:24→21:02)
[2020-12-17] MEDS: ACETAMINOPHEN 325 MG TABLET (FP) PO PRN (21:15)
[2020-12-18] MEDS ORDERED: ceFAZolin SODIUM 1 GM VIAL ONE ×2 (01:54→08:52)
[2020-12-18] MEDS ORDERED: DEXTROSE 5%-WATER - 50 ML IVPB ONE ×2 (01:55→08:52)
[2020-12-18] MEDS: CEFAZOLIN 1 GM in DEXTROSE 5%-WATER - 1 GM/50 ML IVPB IVPB SCH ×2 (02:22→09:32)
[2020-12-18 07:25] LABS: HEMATOCRIT 38.6 % (32.4-45.2); HEMOGLOBIN 13.5 GM/dL (10.7-15.3); MCH 32.8 pg (25.7-33.7); MCHC 35.1 g/dl (32.0-36.0); MEAN CELL VOLUME 93.7 fl (80-96); PLATELET COUNT 236 K/MM3 (134-434); RBC 4.12 M/mm3 (3.60-5.2); RDW 12.7 % (11.6-15.6); WHITE BLOOD COUNT 3.9 K/mm3 (4.0-10.0)
[2020-12-18 07:52] LABS: CALCIUM 9.1 mg/dL (8.5-10.1)
[2020-12-18 07:53] LABS: ALBUMIN 3.4 g/dl (3.4-5.0); BLOOD UREA NITROGEN 20.3 mg/dL (7-18); MAGNESIUM 2.3 mg/dL (1.8-2.4)
[2020-12-18 07:56] LABS: CREATININE 0.7 mg/dL (0.55-1.3)
[2020-12-18 07:57] LABS: BILIRUBIN,TOTAL 0.4 mg/dL (0.2-1); TOT PROT 6.9 g/dl (6.4-8.2)
[2020-12-18] MEDS: ACETAMINOPHEN 325 MG TABLET (FP) PO PRN (09:30)
[2020-12-18] MEDS: NICOTINE 14 MG/24 HOURS TOPICAL PATCH TD SCH (09:31)
[2020-12-18] MEDS: PARoxetine HCL 20 MG TABLET PO SCH (09:32)
[2020-12-18] MEDS: ENOXAPARIN NA (PORCINE) 40 MG/0.4 ML DISP.SYRIN SQ SCH (09:32)
[2020-12-18] MEDS: FAMOTIDINE 20 MG TABLET PO SCH (09:32)
[2020-12-18] MEDS: DOXYCYCLINE INJECTION 100 MG in DEXTROSE 5%-WATER - 100 ML IVPB SCH ×2 (11:13→22:13)
[2020-12-19] MEDS ORDERED: SODIUM CHLORIDE 0.45% 1,000 ML IV SCH (08:45)
[2020-12-19] MEDS ORDERED: MIDAZOLAM HCL 2 MG/2 ML SINGLE DOSE VIAL ONE ×2 (09:19)
[2020-12-19] MEDS ORDERED: ceFAZolin SODIUM 1 GM VIAL IVPB ONE (09:25)
[2020-12-19] MEDS ORDERED: BUPIVACAINE HCL/PF 0.5% (5 MG/ML) 30 ML VIAL IJ ONE (09:40)
[2020-12-19] MEDS ORDERED: LIDOCAINE HCL 1%, 10 MG/ML (20ML VIAL) INF ONE (09:40)
[2020-12-19] MEDS ORDERED: BACITRACIN 50,000 UNITS VIAL TP ONE (09:40)
[2020-12-19] MEDS ORDERED: CALAMINE 8% TOPICAL LOTION 177 ML BOTTLE TP PRN (10:36)
[2020-12-19] MEDS ORDERED: ONDANSETRON 4 MG/2 ML VIAL IVPUSH PRN (10:36)
[2020-12-19] MEDS: SODIUM CHLORIDE 0.45% 1,000 ML IV SCH (12:43)
[2020-12-19] MEDS: traMADol HCL 50 MG TABLET PO PRN (13:54)
[2020-12-19] MEDS: NICOTINE 14 MG/24 HOURS TOPICAL PATCH TD SCH (16:49)
[2020-12-19] MEDS: PARoxetine HCL 20 MG TABLET PO SCH (16:49)
[2020-12-19] MEDS: FAMOTIDINE 20 MG TABLET PO SCH (16:49)
[2020-12-19] MEDS ORDERED: PT OWN MED DRAWER 7, Y5N ONE (21:05)
[2020-12-19 21:16] LABS: CALCIUM 8.4 mg/dL (8.5-10.1)
[2020-12-19 21:19] LABS: CREATININE 0.7 mg/dL (0.55-1.3)
[2020-12-19] MEDS: DOXYCYCLINE INJECTION 100 MG in DEXTROSE 5%-WATER - 100 ML IVPB SCH (21:30)
[2020-12-20] MEDS: traMADol HCL 50 MG TABLET PO PRN (00:12)
[2020-12-20] MEDS: SODIUM CHLORIDE 0.45% 1,000 ML IV SCH ×3 (04:00→23:06)
[2020-12-20 06:44] LABS: BASO % 1.2 % (0-2.0); EOS % 6.2 % (0-4.5); HEMATOCRIT 35.2 % (32.4-45.2); HEMOGLOBIN 12.4 GM/dL (10.7-15.3); LYMPH % 34.9 % (8-40); MCH 32.4 pg (25.7-33.7); MCHC 35.3 g/dl (32.0-36.0); MEAN CELL VOLUME 91.8 fl (80-96); MEAN PLT VOLUME 7.9 fl (7.5-11.1); MONO % 12.8 % (3.8-10.2); NEUT % 44.9 % (42.8-82.8); PLATELET COUNT 230 K/MM3 (134-434); RBC 3.83 M/mm3 (3.60-5.2); RDW 12.6 % (11.6-15.6); WHITE BLOOD COUNT 4.4 K/mm3 (4.0-10.0)
[2020-12-20 06:51] LABS: INR 1.11 (0.83-1.09); PROTHROMBIN TIME (PATIENT) 13.4 SEC (9.7-13.0)
[2020-12-20 07:04] LABS: CALCIUM 8.5 mg/dL (8.5-10.1)
[2020-12-20 07:05] LABS: ALBUMIN 3.3 g/dl (3.4-5.0); BLOOD UREA NITROGEN 22.1 mg/dL (7-18)
[2020-12-20 07:08] LABS: CREATININE 0.6 mg/dL (0.55-1.3)
[2020-12-20 07:09] LABS: BILIRUBIN,TOTAL 0.4 mg/dL (0.2-1); TOT PROT 6.5 g/dl (6.4-8.2)
[2020-12-20] MEDS ORDERED: FAMOTIDINE 20 MG TABLET PO SCH (10:00)
[2020-12-20] MEDS ORDERED: NICOTINE 14 MG/24 HOURS TOPICAL PATCH TD SCH (10:00)
[2020-12-20] MEDS ORDERED: PARoxetine HCL 20 MG TABLET PO SCH (10:00)
[2020-12-20] MEDS ORDERED: PT OWN MED DRAWER 7, Y5N ONE ×2 (10:15→23:03)
[2020-12-20] MEDS: PARoxetine HCL 20 MG TABLET PO SCH (10:45)
[2020-12-20] MEDS: NICOTINE 14 MG/24 HOURS TOPICAL PATCH TD SCH (10:45)
[2020-12-20] MEDS: FAMOTIDINE 20 MG TABLET PO SCH (10:45)
[2020-12-20] MEDS: DOXYCYCLINE INJECTION 100 MG in DEXTROSE 5%-WATER - 100 ML IVPB SCH ×2 (10:46→23:07)
[2020-12-21 07:36] LABS: INR 1.05 (0.83-1.09); PROTHROMBIN TIME (PATIENT) 12.9 SEC (9.7-13.0)
[2020-12-21 07:50] LABS: CALCIUM 8.5 mg/dL (8.5-10.1)
[2020-12-21 07:53] LABS: ALBUMIN 3.4 g/dl (3.4-5.0); BLOOD UREA NITROGEN 21.3 mg/dL (7-18)
[2020-12-21 07:54] LABS: CREATININE 0.6 mg/dL (0.55-1.3)
[2020-12-21 07:55] LABS: BILIRUBIN,TOTAL 0.4 mg/dL (0.2-1); TOT PROT 6.7 g/dl (6.4-8.2)
[2020-12-21] MEDS: NICOTINE 14 MG/24 HOURS TOPICAL PATCH TD SCH (09:28)
[2020-12-21] MEDS: PARoxetine HCL 20 MG TABLET PO SCH (09:28)
[2020-12-21] MEDS: FAMOTIDINE 20 MG TABLET PO SCH (09:28)
[2020-12-21] MEDS: DOXYCYCLINE INJECTION 100 MG in DEXTROSE 5%-WATER - 100 ML IVPB SCH (09:29)
[2020-12-21] MEDS: SODIUM CHLORIDE 0.45% 1,000 ML IV SCH (18:04)
[2020-12-22] MEDS: CLINDAMYCIN 600MG PREMIX IVPB 600 MG/50 ML BAG IVPB SCH ×3 (02:21→17:38)
[2020-12-22] MEDS: SODIUM CHLORIDE 0.45% 1,000 ML IV SCH ×3 (05:59→21:12)
[2020-12-22 07:23] LABS: INR 1.09 (0.83-1.09); PROTHROMBIN TIME (PATIENT) 13.2 SEC (9.7-13.0)
[2020-12-22 07:34] LABS: CALCIUM 8.7 mg/dL (8.5-10.1)
[2020-12-22 07:35] LABS: ALBUMIN 3.5 g/dl (3.4-5.0); BLOOD UREA NITROGEN 21.4 mg/dL (7-18)
[2020-12-22 07:38] LABS: CREATININE 0.7 mg/dL (0.55-1.3)
[2020-12-22 07:39] LABS: BILIRUBIN,TOTAL 0.4 mg/dL (0.2-1)
[2020-12-22 07:40] LABS: TOT PROT 6.7 g/dl (6.4-8.2)
[2020-12-22] MEDS ORDERED: PT OWN MED DRAWER 7, Y5N ONE (10:03)
[2020-12-22] MEDS: FAMOTIDINE 20 MG TABLET PO SCH (10:12)
[2020-12-22] MEDS: NICOTINE 14 MG/24 HOURS TOPICAL PATCH TD SCH (10:12)
[2020-12-22] MEDS: PARoxetine HCL 20 MG TABLET PO SCH (10:12)
[2020-12-23] MEDS: CLINDAMYCIN 600MG PREMIX IVPB 600 MG/50 ML BAG IVPB SCH ×2 (01:01→09:33)
[2020-12-23 08:05] LABS: CALCIUM 8.2 mg/dL (8.5-10.1)
[2020-12-23 08:06] LABS: ALBUMIN 3.2 g/dl (3.4-5.0)
[2020-12-23 08:09] LABS: CREATININE 0.7 mg/dL (0.55-1.3)
[2020-12-23 08:10] LABS: BILIRUBIN,TOTAL 0.3 mg/dL (0.2-1); TOT PROT 6.4 g/dl (6.4-8.2)
[2020-12-23] MEDS ORDERED: PT OWN MED DRAWER 7, Y5N ONE (08:50)
[2020-12-23] MEDS: FAMOTIDINE 20 MG TABLET PO SCH (09:33)
[2020-12-23] MEDS: NICOTINE 14 MG/24 HOURS TOPICAL PATCH TD SCH (09:33)
[2020-12-23] MEDS: PARoxetine HCL 20 MG TABLET PO SCH (09:34)
[2020-12-23] MEDS: SODIUM CHLORIDE 0.45% 1,000 ML IV SCH (12:18)
[2020-12-23 14:42] VITALS: BP 135/68; PULSE 93; TEMP 97.6
== END 2020-12-23 19:04 | disposition home or self-care (01) | DRG 383 ==
LOC: JER 20:41 → JERBED 22:40 → J7W 12-14 09:25
PROVIDERS: ADMIT Hospitalist; ATTEND Family Medicine
PROC: 0J9Q0ZX Drainage of Right Foot Subcutaneous Tissue and Fascia, Open Approach, Diagnostic (ICD-10-PCS; 2020-12-19)
PROC: 0JBQ0ZX Excision of Right Foot Subcutaneous Tissue and Fascia, Open Approach, Diagnostic (ICD-10-PCS; principal; 2020-12-19 09:00)
DX: L02.611 Cutaneous abscess of right foot (principal); R11.0 Nausea; L03.031 Cellulitis of right toe; L23.7 Allergic contact dermatitis due to plants, except food; R74.01 Elevation of levels of liver transaminase levels; K29.60 Other gastritis without bleeding; F32.9 Major depressive disorder, single episode, unspecified; R64 Cachexia; Z68.1 Body mass index [BMI] 19.9 or less, adult; E87.5 Hyperkalemia; F17.210 Nicotine dependence, cigarettes, uncomplicated
CPT/HCPCS: 36415; 73630-TC-RT-FY; 73718-TC-RT; 76705-TC; 76882-TC-RT-FY; 80048; 80053; 80074; 82550; 82977; 83690; 83735; 85025; 85027; 85610; 85651; 86038; 86140; 86803; 87040; 87070; 87186; 87205; 88307-TC; 93005; 93010; 99285-25; C9803; U0003; U0005